=== PATIENT | male | born 1975 ===

== ENCOUNTER 2017-06-03 01:08 | Emergency (ER) | payer OTHER ==
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
[2017-06-03 02:06] VITALS: RESP 18; O2SAT 97
[2017-06-03 02:11] VITALS: BP 122/69; PULSE 74; TEMP 97.4
--- NOTE | 2017-06-03 08:57 | RAD ---
PROCEDURE: Cervical Spine Radiographs. HISTORY: Pain. COMPARISON: None. FINDINGS: BONES: There is straightening of the cervical spine with loss of normal cervical lordosis. Vertebral alignment is normal. Vertebral height is maintained. There is no acute fracture or traumatic anterior listhesis. Bone mineralization is normal. The craniocervical junction is normal. The atlantoaxial joint is normal. DISC SPACES: There is mild multilevel degenerative disc disease at C4-5, C5-6 and C6-7. SOFT TISSUES: Normal. No prevertebral soft tissue swelling. OTHER FINDINGS: None. IMPRESSION: No acute fracture or traumatic anterior listhesis. Straightening of the cervical spine may be positional or related to muscle spasm.
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
== END 2017-06-03 02:19 | disposition home or self-care (01) ==
LOC: C.ER 01:08
DX: S16.1XXA Strain of muscle, fascia and tendon at neck level, initial encounter (principal); S39.012A Strain of muscle, fascia and tendon of lower back, initial encounter; V89.2XXA Person injured in unspecified motor-vehicle accident, traffic, initial encounter